=== PATIENT | female | born 2000 | race Caucasian/White ===

== ENCOUNTER 2019-04-04 17:21 | Inpatient (IN) | payer OTHER ==
[2019-04-04 13:23] VITALS: BMI 27.4
--- NOTE | 2019-04-04 13:38 | HP ---
LOCATION: Labor and Delivery triage in room A. REASON FOR EVALUATION: Suspected contractions at 35 weeks and 5 days. This is a patient of Dr. Diane Gonzalez. HISTORY OF PRESENT ILLNESS: This is a 19-year-old, G2, P1 with a history of a prior term delivery, who is now at 35 weeks and 5 days with an EDC of May 04, 2019, who now presents with contractions since this morning. She denies any leakage of fluid, and she does have some "mucus plug" which she saw at home. She denies any trauma or vaginal bleeding. She has good movement and denies any issues. REVIEW OF SYSTEMS: Complete review of systems was checked and is otherwise negative unless specified in the HPI. PAST MEDICAL HISTORY: Noncontributory. OB HISTORY: Significant for vaginal delivery x1 at term, for which she was induced. ALLERGIES: NEGATIVE. PHYSICAL EXAMINATION: VITAL SIGNS: Her blood pressure is 114/70, pulse is 94, respirations are 18, and her temperature is 98.2. Clinically, she is in no acute distress, but looks like she is having some contraction discomfort. ABDOMEN: Soft, nontender. She did have a pelvic/cervical exam by the RN, which showed her cervix to be 3 to 4 cm dilated, 80% effaced, -2 station. She states that she was 3 cm in the office with Dr. Gonzalez at her last check. On tracing, heart tones are in the 130s to 140s, and they are reactive and there are contractions about every 3 minutes on tocodynamometer. Interventions ordered. I have ordered Celestone 12 mg to be given now for threatened labor, and I have also ordered terbutaline x1 for symptomatic relief of her contractions, and I have also ordered IV fluid hydration. ASSESSMENT: This is a 19-year-old, G2, P1, at 35 weeks and 5 days with possible latent labor versus threatened labor. PLAN: 1. Celestone for lung maturity as she is less than 36 weeks and 6 days. 2. IV fluid hydration. 3. Terbutaline x1 for symptomatic relief. 4. I will order an ultrasound to get an estimated weight in case the patient progresses. Job ID: [id number]
--- NOTE | 2019-04-04 14:36 | ULT ---
EXAM: OB ultrasound COMPARISON: None HISTORY: female with threatened labor at 35 weeks. TECHNIQUE: Multiplanar grayscale and color Doppler images were obtained in a transabdominal ult rasound. FINDINGS: There is a single live intrauterine with heart rate of 127 bpm. . Estimated weight is 2835 g. Average age of the fetus based off today's examination is 35 weeks 6 days. BPD 8.87 cm -- 35 weeks 6 days HC 32.18 cm -- 36 weeks 2 days AC 32.88 cm -- 36 weeks 6 days FL 6.69 cm -- 34 weeks 3 days The placenta is along the maternal right in location without focal abnormality. DREA is 4.7 cm which i s low. The fetus is in vertex presentation. IMPRESSION: 1. Single live intrauterine with estimated age of 35 weeks 6 days 2. Oligohydramnios.
[~2019-04-04 17:21] MED LIST: Betamet Acet/Betamet Na Ph 30 MG/5 ML VIAL IM SCH; Lactated Ringer's 1,000 ML IV SCH; Terbutaline Sulfate 1 MG/ML VIAL SC SCH; hydrALAZINE 20 MG/ML VIAL SLOW IVP PRN
--- NOTE | 2019-04-04 17:37 | PDOC.EVN ---
Event Note - Event Note Event Note: if no change at recheck...allowed to have DC to home with recheck in 24 hrs in office; second celestone tomorrow
== END 2019-04-04 17:22 | disposition home health service (06) | DRG 833 ==
LOC: L&D/OP 17:21 → L&D 17:22
PROVIDERS: ADMIT Obstetrics & Gynecology; ATTEND Obstetrics & Gynecology
DX: O60.03 Preterm labor without delivery, third trimester (principal); Z3A.35 35 weeks gestation of pregnancy
CPT/HCPCS: 76815; 96360; 96375; J0702

== ENCOUNTER 2019-04-11 16:27 | Inpatient (IN) | payer OTHER ==
[2019-04-11 17:05] VITALS: BMI 26.6
[2019-04-11] MEDS ORDERED: FLU VACC QS2019-20(6MOS UP)/PF 60 MCG/0.5 ML SYRINGE IM ONE (17:15)
[2019-04-11] MEDS ORDERED: hydrALAZINE 20 MG/ML VIAL SLOW IVP PRN (17:23)
[2019-04-11] MEDS ORDERED: Butorphanol Tartrate 1 MG/ML VIAL ONE (19:45)
[2019-04-12] MEDS ORDERED: Meperidine HCl/PF 25 MG/ML VIAL IM/IV PRN (00:13)
[2019-04-12] MEDS ORDERED: Zolpidem Tartrate 5 MG TAB PO PRN (00:13)
[2019-04-12] MEDS ORDERED: Ondansetron PF 4 MG/2 ML Vial IVP PRN ×2 (00:13→11:02)
[2019-04-12] MEDS ORDERED: hydrALAZINE 20 MG/ML VIAL SLOW IVP PRN ×2 (00:13→14:53)
[2019-04-12] MEDS ORDERED: Acetaminophen 500 MG TAB PO PRN (00:13)
[2019-04-12] MEDS ORDERED: Promethazine HCl 25 MG/ML VIAL IM PRN ×2 (00:13→11:02)
--- NOTE | 2019-04-12 00:17 | PDOC.EVN ---
Event Note - Event Note Event Note: Continues to c/o painful UCs despite Stadol and IV hydration. SVE= 2/50/-2, cervix soft. FHTs stable. UCs q 5-6 mins. Plan: Will continue to observe.
[2019-04-12] MEDS: Butorphanol Tartrate 1 MG/ML VIAL SLOW IVP PRN ×2 (01:50→06:30)
[2019-04-12] MEDS ORDERED: HYDROcodone/Acetaminophen 5/325 mg Tablet PO PRN ×2 (06:21)
[2019-04-12] MEDS ORDERED: Ibuprofen 800 MG TAB PO PRN (06:21)
[2019-04-12] MEDS ORDERED: NS / Oxytocin 40 units/1000ml 1,000 ML IV PRN (06:21)
[2019-04-12] MEDS ORDERED: Lidocaine 1% (PF) 30 ML VIAL SC PRN (06:21)
--- NOTE | 2019-04-12 06:21 | PDOC.EVN ---
Event Note - Event Note Event Note: Says contractions are more painful now. SVE /-1, vtx, BOWI. FHTs stable. Ucs irregular on toco. GBS is negative. Will cont. expectant management.
[2019-04-12 08:48] LABS: Hemoglobin 8.4 g/dL (12.0-16.0); Mean Corpuscular HGB CONC 31.7 g/dL (32.0-36.0); Mean Corpuscular Hemoglobin 21.5 pg (27.0-31.0); Mean Corpuscular Volume 67.7 fL (78.0-98.0); Mean Platelet Volume 10.1 fL (7.4-10.4); Platelet Count 271 thou/uL (130-400); RBC Distribution Width 15.6 % (11.5-14.5); Red Blood Cell (RBC) Count 3.92 mill/uL (4.20-5.40); White Blood Cell (WBC) Count 14.6 thou/uL (4.8-10.8)
--- NOTE | 2019-04-12 09:11 | HP ---
REGULAR PHYSICIAN: Diane Gonzalez MD CHIEF COMPLAINT: Contractions at home. HISTORY OF PRESENT ILLNESS: Ms. Coleman is a 19-year-old white G2, P1, with an estimated date of confinement of 05/04/2019, who presents complaining of uterine contractions every 3 to 5 minutes since earlier today. She denies ruptured membranes or vaginal bleeding. Her care has been with Dr. Gonzalez and has been complicated by contractions, for which she has previously received steroids. PAST OBSTETRICAL HISTORY: Includes one vaginal delivery at 37 weeks. PAST MEDICAL HISTORY: None. PAST SURGICAL HISTORY: None. CURRENT MEDICATIONS: vitamins. ALLERGIES: NO KNOWN ALLERGIES. SOCIAL HISTORY: Denies tobacco, alcohol, or drug use. FAMILY HISTORY: Unremarkable. REVIEW OF SYSTEMS: Denies nausea, vomiting, fever, chills, ruptured membranes, or vaginal bleeding. PHYSICAL EXAMINATION: VITAL SIGNS: Stable. She is afebrile. GENERAL: She is pleasant, occasionally uncomfortable, but in no acute distress. ABDOMEN: Soft, nontender, and gravid. heart rate tracing is stable with spontaneous accelerations. Uterine contractions are seen every 5 to 7 minutes. PELVIS: Vaginal exam shows the cervix to be 2 to 3 cm dilated, 50% effaced with the vertex at the -1. ASSESSMENT: 1. 36-5/7 week intrauterine . 2. Steroids previously given. 3. Rule out active labor. PLAN: Patient will be observed, orally hydrated, and will be checked for cervical change. Dr. Gonzalez is out of town and the OB hospitalist service will be managing. Job ID: [id number]
[2019-04-12 09:21] LABS: HBSAg Index 0.19 S/CO (0-0.99); Hep B Surf Ag Non-Reactive S/CO (NonReactive); Syphilis Antibody Nonreactive (Nonreactive); Syphilis Antibody Index 0.06 S/CO (<1.00 Non-Reactive)
[2019-04-12] MEDS ORDERED: Morphine 2 MG/ML SYRINGE SLOW IVP SCH (09:30)
--- NOTE | 2019-04-12 09:35 | PDOC.EVN ---
Event Note - Event Note Event Note: Pt reports 10/10 pain with contractions. vitals reviewed and wnl sve /-3
[2019-04-12] MEDS ORDERED: Ondansetron ODT 8 MG TAB SL SCH (09:45)
[2019-04-12] MEDS ORDERED: Morphine 4 MG/ML VIAL IM SCH (09:45)
[2019-04-12] MEDS ORDERED: Morphine 4 MG/ML VIAL SLOW IVP SCH (09:45)
[2019-04-12] MEDS ORDERED: Fentanyl 4 mcg/Bup 0.1% Cadd 100 ML ONE (10:28)
[2019-04-12] MEDS: Lactated Ringer's 1,000 ML IV SCH (10:49)
[2019-04-12] MEDS ORDERED: Lidocaine 1.5%/Epinephrine 1:200,000 5 ML AMPUL IJ ONE (10:52)
[2019-04-12] MEDS ORDERED: Naloxone HCl 0.4 mg/ml Vial IVP PRN ×2 (11:02)
[2019-04-12] MEDS ORDERED: diphenhydrAMINE 50 MG/ML VIAL IVP PRN (11:02)
[2019-04-12] MEDS ORDERED: Lactated Ringer's 500 ML IV PRN (11:02)
[2019-04-12] MEDS ORDERED: ePHEDrine/0.9% NaCl/PF SYRINGE 50 mg/10 ml SLOW IVP PRN (11:02)
[2019-04-12] MEDS ORDERED: Fentanyl 4 mcg/Bupivacaine 0.1% Cassette 100 ML EPIDURAL SCH (11:15)
[2019-04-12] MEDS ORDERED: Communication Order-Pharmacy FS PRN (11:15)
[2019-04-12] MEDS ORDERED: Methylergonovine 0.2 MG/ML VIAL ONE (12:04)
[2019-04-12] MEDS ORDERED: Misoprostol 200 MCG TAB ONE (12:06)
[2019-04-12] MEDS ORDERED: Adacel (T-DAP) 0.5 ML SYRINGE IM ONE (14:53)
[2019-04-12] MEDS ORDERED: NS / Oxytocin 40 units/1000ml 1,000 ML IV SCH (14:53)
[2019-04-12] MEDS ORDERED: Lanolin Ointment 7 GM TUBE TOP PRN (14:53)
[2019-04-12] MEDS ORDERED: Bisacodyl 10 MG SUPP PR PRN (14:53)
[2019-04-12] MEDS ORDERED: Milk Of Magnesia 30 ML UDCUP PO PRN (14:53)
[2019-04-12] MEDS: Ibuprofen 800 MG TAB PO SCH ×2 (16:38→23:36)
--- NOTE | 2019-04-12 21:31 | OP ---
DATE OF PROCEDURE: 04/12/2019 The patient delivered a female on 04/12/2019 at 12:57 p.m. by vaginal delivery at 36 weeks and 6 days. Weight is 2092 grams. Apgars are 8 and 9. Placenta delivered spontaneously followed by Pitocin infusion. There were no lacerations. Quantitative blood loss [address] Hernandez, the delivering physician. Counts were correct. There were no complications. Mother and baby are stable in the room in the immediate . Job ID: [id number]
[2019-04-12] MEDS: Docusate Calcium (SURFAK) 240 MG CAP PO SCH (23:40)
[2019-04-12] MEDS: Ferrous Sulfate 325 MG TAB PO SCH (23:41)
[2019-04-13] MEDS: Ibuprofen 800 MG TAB PO SCH ×2 (08:15→16:23)
--- NOTE | 2019-04-13 08:34 | PRG ---
DATE OF SERVICE: 04/13/2019 SUBJECTIVE: The patient reports this morning that she is tolerating p.o., having good pain control, decreased lochia and is ambulating. OBJECTIVE: VITAL SIGNS: This morning blood pressure 98/54, temperature 98.5, pulse is 77, respiratory rate of 18. GENERAL: She appears to be in no acute distress. She is alert and oriented, cooperative, and pleasant to interact with. HEAD: Normocephalic, atraumatic. PELVIC: Fundus is firm. EXTREMITIES: Nontender, nonedematous. ASSESSMENT AND PLAN: The patient is a 19-year-old day 1, status post a spontaneous vaginal delivery. After speaking to the nursery there were multiple things still left to be done for the baby prior to consideration for discharge. The patient will be planned for care today with discharge possible this evening or tomorrow. Her primary provider, Dr. Gonzalez will be back this evening and can see her tomorrow for continuity of care. Job ID: [id number]
[2019-04-13] MEDS: Prenatal Vitamin 1 TAB PO SCH (09:46)
[2019-04-13] MEDS: Docusate Calcium (SURFAK) 240 MG CAP PO SCH ×2 (09:47→22:48)
[2019-04-13] MEDS: Ferrous Sulfate 325 MG TAB PO SCH ×2 (09:47→16:23)
[2019-04-13] MEDS: Acetaminophen 325 MG TAB PO PRN ×2 (15:42→22:48)
[2019-04-13] MEDS: Lactated Ringer's 1,000 ML IV SCH (22:30)
[2019-04-14] MEDS: Ibuprofen 800 MG TAB PO SCH ×2 (00:37→07:56)
--- NOTE | 2019-04-14 07:48 | PDOC.PP ---
Post Progress Note Post Day #: 2 Subjective: Ready to go home. Baby is doing well. PO intake tolerated: yes Flatus: yes Ambulation: yes Weight Weight 155 lb Result Diagrams: 04/12/19 08:18 Additional Labs: Post Labs Blood Type A POSITIVE 04/12/19 08:42 Hep Bs Antigen Non-Reactive S/CO (NonReactive) 04/12/19 08:18 - Assessment/Plan Post day 2... Doing well. Discharge home and follow up 6 weeks.
[2019-04-14] MEDS: Docusate Calcium (SURFAK) 240 MG CAP PO SCH (07:54)
[2019-04-14] MEDS: Ferrous Sulfate 325 MG TAB PO SCH (07:54)
[2019-04-14] MEDS: Prenatal Vitamin 1 TAB PO SCH (07:54)
[2019-04-14] MEDS: Acetaminophen 325 MG TAB PO PRN (07:54)
[2019-04-14 08:32] VITALS: BP 121/72; TEMP 97.7
[2019-04-15] MEDS ORDERED: Measles/Mumps/Rubella 10 MCG/0.5 ML VIAL SC ONE (09:00)
--- NOTE | 2019-04-16 04:19 | PQF ---
[employer] Professor Of [employer] ViewerSEYLANCE JACKSON MICHAEL MD [id number] CLINICAL DOCUMENTATION CLARIFICATION FORM: POST DISCHARGE Addendum to original discharge summary date: __04/14/19 Late entry note date: 04/16/19 DATE: 04/16/2019 ATTN:GALE ENNIS MD Please exercise your independent, professional judgment in responding to the clarification form. Clinical indicators are provided on the bottom of this form for your review Please check appropriate box(s): [ ] Acute blood loss anemia [ ] Post-op anemia related to acute blood loss [ x ] Chronic Anemia [ ] Other diagnosis [ ] Unable to determine In addition, please specify: Present on Admission (POA): [x ] Yes [ ] No [ ] Unable to determine For continuity of documentation, please document condition throughout progress notes and discharge summary. Thank You. CLINICAL INDICATORS - SIGNS / SYMPTOMS / LABS Estimated Blood loss 75ml - Documented OP report HGB 8.4 on 04/12 - Documented on Laboratory report HCT 26.5 on 04/12 - Documented on Laboratory repor BP 98/54 on 04/13 - Documented in Vital Signs Pulse rate 106 on 04/13 - Documented in Vital Signs RISK FACTORS labor 36 weeks Spontaneous vaginal delivery TREATMENTS: Ferrous sulfate 350mg - Medication report [employer] Professor Of [employer] [id number] [employer]. All Rights Reserved Amanda [email or web address] [not provided] (This form is maintained as a part of the permanent medical record) [facility]
== END 2019-04-14 16:30 | disposition home or self-care (01) | DRG 807 ==
LOC: L&D/OP 16:27 → OBSVTOIN 04-12 00:13 → L&D-LIB 04-12 00:13 → 3SW 04-12 23:25
PROVIDERS: ADMIT Obstetrics & Gynecology; ATTEND Obstetrics & Gynecology
PROC: 10E0XZZ Delivery of Products of Conception, External Approach (ICD-10-PCS; principal; 2019-04-12)
DX: O60.14X0 Preterm labor third trimester with preterm delivery third trimester, not applicable or unspecified (principal); Z37.0 Single live birth; Z3A.36 36 weeks gestation of pregnancy; O99.02 Anemia complicating childbirth; D64.9 Anemia, unspecified
CPT/HCPCS: 36415; 51702; 85027; 86780; 86850; 86900; 86901; 87340; 90707; 99285; J0595; J2175; J2210; J3490

== ENCOUNTER 2019-08-06 11:03 | Emergency (ER) | payer OTHER | END 2019-08-06 11:45 | disposition home or self-care (01) | LOC: ERS 11:03 | DX: R11.2 Nausea with vomiting, unspecified (principal) | CPT/HCPCS: 99281 ==

== ENCOUNTER 2019-08-27 13:52 | Emergency (ER) | payer OTHER ==
[2019-08-28 19:52] LABS: SARS-CoV-2 MS2 Positive; SARS-CoV-2 N Gene Negative; SARS-CoV-2 S Gene Negative; SARS-CoV-2 orf1ab Negative
== END 2019-08-27 15:16 | disposition home or self-care (01) ==
LOC: ERS 13:52
DX: Z20.828 Contact with and (suspected) exposure to other viral communicable diseases (principal)
CPT/HCPCS: 87635; 99283; U0003